=== PATIENT | female | born 1945 | race Caucasian/White ===

== ENCOUNTER 2020-01-22 08:24 | Outpatient (CLI) | payer MEDICARE, SELFPAY ==
--- NOTE | ~2020-01-22 | MM_ITS ---
EXAMINATION: MM screening [facility] w saarhi HISTORY: Screening mammogram TECHNIQUE: Craniocaudal and mediolateral oblique 3-D tomosynthesis images were obtained and synthetic 2-D images were generated. CAD analysis was submitted and interpreted. COMPARISON: 01/02/2019, 12/10/2016, 02/22/2014 bilateral digital screening mammogram examinations BREAST PARENCHYMAL COMPOSITION: There are scattered areas of fibroglandular density. FINDINGS: There is no evidence of suspicious mass, calcification, or architectural distortion to sugg est malignancy in either breast. There has been no suspicious interval change. IMPRESSION: 1. No mammographic evidence of malignancy. 2. Recommend routine screening mammography in one year. BI-RADS Category 1: Negative Reviewed, dictated and finalized at location A.
== END 2020-01-22 08:25 | disposition home or self-care (01) ==
LOC: ANHIMG 08:28
PROVIDERS: PCP Family Medicine; Visit Provider Obstetrics & Gynecology Gynecology
DX: Z12.31 Encounter for screening mammogram for malignant neoplasm of breast (principal)
CPT/HCPCS: 77063; 77067

== ENCOUNTER 2021-02-07 13:56 | Outpatient (CLI) | payer MEDICARE, SELFPAY ==
--- NOTE | ~2021-02-07 | MM_ITS ---
EXAMINATION: MM screening [facility] [place] BI w sarahi HISTORY: Screening TECHNIQUE: Craniocaudal and mediolateral oblique 3-D tomosynthesis images were obtained and synthetic 2-D images were generated. CAD analysis was submitted and interpreted. COMPARISON: Comparison to multiple prior studies sequentially, with oldest reviewed study dated 01/28. BREAST PARENCHYMAL COMPOSITION: There are scattered areas of fibroglandular density. FINDINGS: There is no evidence of suspicious mass, calcification, or architectural distortion to sugg est malignancy in either breast. There has been no suspicious interval change. IMPRESSION: 1. No mammographic evidence of malignancy. 2. Recommend routine screening mammography in one year. BI-RADS Category 1: Negative Reviewed, dictated and finalized at location A.
--- NOTE | ~2021-02-07 | DEXA_ITS ---
Bone Density Report Name: Sharlene Leung Age: 75 Sex: Female Ethnicity: White Date of : 1945 Indication: osteopenia; monitoring treatment; height loss; prior fracture; post menopausal Referring Provider: ROSALIO ECHEVERRIA Study: Bone densitometry was performed. Exam Date: February 07, 2021 Accession number: [id number] Bone Density: Region BMD T-score Z-score Classification AP Spine (L1-L4) 1.059 0.1 2.5 Normal Femoral Neck (Left) 0.693 -1.4 0.7 Osteopenia Total Hip (Left) 0.845 -0.8 1.0 Normal Total Hip Bilateral Avg 0.792 -1.3 0.6 Osteopenia Femoral Neck (Right) 0.603 -2.2 -0.1 Osteopenia Total Hip (Right) 0.737 -1.7 0.1 Osteopenia World Health Organization criteria for BMD impression classify patients as: Normal (T-score at or above -1.0), Osteopenia (T-score between -1.0 and -2.5), or Osteoporosis (T-score at or below -2.5). 10-year Fracture Risk: FRAX not reported because: Treated for osteoporosis Previous Exams: Region Exam Age BMD T-score BMD Change BMD Change Date g/cm2 vs Baseline vs Previous AP Spine(L1-L4) 02/07/2021 75 1.059 0.1 0.220(26.2%)# 0.048(4.7%)* 02/22/2014 68 1.011 -0.3 0.172(20.5%)# 0.037(3.8%)# 02/15/2012 66 0.974 -0.7 0.134(16.0%)# 0.127(15.0%)# 11/09/2006 61 0.846 -1.8 0.007(0.8%) 0.046(5.8%)* 08/05/2004 59 0.800 -2.2 -0.039(-4.7%)* -0.039(-4.7%)* 01/01/2003 57 0.839 -1.9 Total Hip(Left) 02/07/2021 75 0.845 -0.8 0.104(14.0%)# -0.038(-4.3%)* 01/02/2019 73 0.883 -0.5 0.142(19.2%)# 0.028(3.3%)* 12/10/2016 71 0.855 -0.7 0.114(15.4%)# 0.037(4.6%)* 02/22/2014 68 0.817 -1.0 0.077(10.3%)# -0.061(-7.0%)# 02/15/2012 66 0.879 -0.5 0.138(18.6%)# 0.142(19.3%)# 01/13/2010 64 0.737 -1.7 -0.004(-0.5%) 0.010(1.4%) 11/09/2006 61 0.727 -1.8 -0.014(-1.9%) 0.045(6.5%)* 08/05/2004 59 0.682 -2.1 -0.059(-7.9%)* -0.059(-7.9%)* 01/01/2003 57 0.741 -1.6 Total Hip(Right) 02/07/2021 75 0.737 -1.7 -0.007(-0.9%)# -0.035(-4.5%)* 01/02/2019 73 0.772 -1.4 0.028(3.8%)# -0.009(-1.1%) 12/10/2016 71 0.781 -1.3 0.037(5.0%)# 0.011(1.4%) 02/22/2014 68 0.770 -1.4 0.026(3.5%)# -0.035(-4.3%)# 02/15/2012 66 0.805 -1.1 0.061(8.2%)# 0.081(11.2%)# 01/13/2010 64 0.724 -1.8 -0.020(-2.7%) 0.040(5.8%)* 11/09/2006 61 0.684 -2.1 -0.060(-8.1%)* -0.006(-0.8%) 08/05/2004 59 0.689 -2.1 -0.055(-7.3%)* -0.055(-7.3%)* 01/01/2003 57 0.744 -1.6 *Denotes significance at 95% confidence level, [facility] for
== END 2021-02-07 13:57 | disposition home or self-care (01) ==
LOC: ANHIMG 13:59
PROVIDERS: PCP Family Medicine; Visit Provider Obstetrics & Gynecology Gynecology
DX: Z12.31 Encounter for screening mammogram for malignant neoplasm of breast (principal); Z78.0 Asymptomatic menopausal state; M85.852 Other specified disorders of bone density and structure, left thigh; M85.851 Other specified disorders of bone density and structure, right thigh
CPT/HCPCS: 77063; 77067; 77080

== ENCOUNTER 2022-01-15 12:46 | Outpatient (CLI) | payer MEDICARE, SELFPAY ==
[2022-01-15 20:41] LABS: Alanine Aminotransferase 19 U/L (6-35); Albumin Level 4.5 g/dL (3.5-5.1); Alkaline Phosphatase 65 U/L (38-126); Anion Gap 11 mmol/L (8-16); Aspartate Amino Transferase 46 U/L (14-36); Bilirubin,Total 0.9 mg/dL (0.2-1.3); Blood Urea Nitrogen 15 mg/dL (7-17); Calcium 9.4 mg/dL (8.4-10.2); Carbon Dioxide 31 mmol/L (22-30); Chloride 99 mmol/L (98-107); Estimated Glomerular Filt Rate > 60; Glucose 92 mg/dL (65-110); Potassium 3.5 mmol/L (3.4-5.0); Sodium 141 mmol/L (137-145)
[2022-01-15 21:05] LABS: Vitamin D 25 Hydroxy 90.4 ng/mL
== END 2022-01-15 12:47 | disposition home or self-care (01) ==
LOC: ANHGOSHLAB 12:48
PROVIDERS: PCP Family Medicine; Visit Provider Family Medicine
DX: E55.9 Vitamin D deficiency, unspecified (principal); E78.5 Hyperlipidemia, unspecified; I10 Essential (primary) hypertension
CPT/HCPCS: 36415; 80053; 82306

== ENCOUNTER 2022-03-05 07:52 | Outpatient (CLI) | payer MEDICARE, SELFPAY ==
--- NOTE | ~2022-03-05 | MM_ITS ---
EXAMINATION: MM screening [facility] w sarahi HISTORY: Screening mammogram TECHNIQUE: Craniocaudal and mediolateral oblique 3-D tomosynthesis images were obtained and synthetic 2-D images were generated. CAD analysis was submitted and interpreted. COMPARISON: 02/07/2021, 01/22/2020, 01/02/2019 bilateral screening mammogram examinations BREAST PARENCHYMAL COMPOSITION: There are scattered areas of fibroglandular density. FINDINGS: There is no evidence of suspicious mass, calcification, or architectural distortion to sugg est malignancy in either breast. There has been no suspicious interval change. IMPRESSION: 1. No mammographic evidence of malignancy. 2. Recommend routine screening mammography in one year. BI-RADS Category 1: Negative Reviewed, dictated and finalized at location A. 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
== END 2022-03-05 07:53 | disposition home or self-care (01) ==
LOC: ANHIMG 07:54
PROVIDERS: PCP Family Medicine; Visit Provider Obstetrics & Gynecology Gynecology
DX: Z12.31 Encounter for screening mammogram for malignant neoplasm of breast (principal)
CPT/HCPCS: 77063; 77067

== ENCOUNTER 2022-07-04 09:49 | Outpatient (CLI) | payer MEDICARE, SELFPAY ==
[2022-07-04 17:38] LABS: Basophils Absolute Auto 0.1 K/mm3 (0.0-0.1); Basophils Percent Auto 1.3 % (0.2-1.2); Eosinophils Absolute Auto 0.2 K/mm3 (0-0.3); Eosinophils Percent Auto 3.3 % (0-4.4); Hematocrit 43.9 % (37.0-47.0); Immature Granulocyte Absolute 0.01 K/mm3 (0.00-0.031); Immature Granulocyte Percent A 0.1 % (0-0.5); Lymphocytes Absolute Auto 2.37 K/mm3 (0.9-3.2); Lymphocytes Percent Auto 35.4 % (18.3-44.2); Mean Corpuscular HGB Conc 31.9 g/dl (32-36); Mean Corpuscular Hemoglobin 30.6 pg (26-34); Mean Corpuscular Volume 96.1 fl (80-100); Mean Platelet Volume 10.5 fl (7.4-10.4); Monocytes Absolute Auto 0.7 K/mm3 (0.1-0.6); Monocytes Percent Auto 10.4 % (2.6-8.5); Neutrophils Absolute Auto 3.3 K/mm3 (1.3-6.7); Neutrophils Percent Auto 49.5 % (45.5-73.1); Platelet Count Result 298 k/mm3 (150-375); Red Blood Count 4.57 M/mm3 (4.2-5.4); Red Cell Distribution Width 13.8 % (11.5-14.5); White Blood Count 6.7 K/mm3 (4.5-10.0)
[2022-07-04 18:24] LABS: Alanine Aminotransferase 21 U/L (6-35); Albumin Level 4.5 g/dL (3.5-5.1); Alkaline Phosphatase 82 U/L (38-126); Anion Gap 6 mmol/L (8-16); Aspartate Amino Transferase 34 U/L (14-36); Bilirubin,Total 0.8 mg/dL (0.2-1.3); Blood Urea Nitrogen 18 mg/dL (7-17); Calcium 9.4 mg/dL (8.4-10.2); Carbon Dioxide 33 mmol/L (22-30); Chloride 100 mmol/L (98-107); Cholesterol 164 mg/dL (0-200); Estimated Glomerular Filt Rate > 60; Glucose 103 mg/dL (65-110); HDL Direct 54 mg/dL; Potassium 4.7 mmol/L (3.4-5.0); Sodium 139 mmol/L (137-145); Triglycerides 108 mg/dL (<150)
[2022-07-04 18:35] LABS: LDL Cholesterol Direct 79 mg/dL
[2022-07-04 18:56] LABS: Vitamin D 25 Hydroxy 72.1 ng/mL
[2022-07-04 19:20] LABS: Hemoglobin A1C 5.4 % (<5.7)
== END 2022-07-04 09:50 | disposition home or self-care (01) ==
LOC: ANHGOSHLAB 09:51
PROVIDERS: PCP Family Medicine; Visit Provider Family Medicine
DX: M85.80 Other specified disorders of bone density and structure, unspecified site (principal); I10 Essential (primary) hypertension; E55.9 Vitamin D deficiency, unspecified; E78.5 Hyperlipidemia, unspecified; R73.9 Hyperglycemia, unspecified; E53.8 Deficiency of other specified B group vitamins
CPT/HCPCS: 36415; 80053; 80061; 82306; 82607; 83036; 84443; 85025

== ENCOUNTER 2023-01-03 10:07 | Outpatient (CLI) | payer MEDICARE, SELFPAY ==
[2023-01-03 19:05] LABS: Alanine Aminotransferase 18 U/L (6-35); Albumin Level 4.4 g/dL (3.5-5.1); Alkaline Phosphatase 66 U/L (38-126); Anion Gap 3 mmol/L (8-16); Aspartate Amino Transferase 30 U/L (14-36); Bilirubin,Total 0.9 mg/dL (0.2-1.3); Blood Urea Nitrogen 16 mg/dL (7-17); Calcium 9.5 mg/dL (8.4-10.2); Carbon Dioxide 37 mmol/L (22-30); Chloride 98 mmol/L (98-107); Estimated Glomerular Filt Rate > 60; Glucose 110 mg/dL (65-110); Potassium 4.6 mmol/L (3.4-5.0); Sodium 138 mmol/L (137-145)
== END 2023-01-03 10:08 | disposition home or self-care (01) ==
PROVIDERS: PCP Family Medicine; Visit Provider Family Medicine
DX: E78.5 Hyperlipidemia, unspecified (principal); I10 Essential (primary) hypertension
CPT/HCPCS: 36415; 80053

== ENCOUNTER 2023-04-02 08:40 | Outpatient (CLI) | payer MEDICARE, SELFPAY ==
--- NOTE | ~2023-04-02 | MM_ITS ---
EXAMINATION: MM screening [facility] BI w sarahi HISTORY: Screening mammogram TECHNIQUE: Craniocaudal and mediolateral oblique 3-D tomosynthesis images were obtained and synthetic 2-D images were generated. CAD analysis was submitted and interpreted. COMPARISON: 03/05/2022, 02/07/2021, 01/22/2020 BREAST PARENCHYMAL COMPOSITION: There are scattered areas of fibroglandular density. FINDINGS: No suspicious mass, calcification, or architectural distortion are identified in either radha ast to suggest malignancy. There has been no suspicious interval change. IMPRESSION: 1. No mammographic evidence of malignancy. 2. Recommend routine screening mammography in one year. 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
--- NOTE | ~2023-04-02 | DEXA_ITS ---
Bone Density Report Name: LUPE LAWTON Age: 77 Sex: Female Ethnicity: White Date of : 1945 Indication: osteopenia; monitoring treatment; height loss; postmenoapausal Referring Provider: ROSALIO ECHEVERRIA Study: Bone densitometry was performed. Exam Date: April 02, 2023 Accession number: [id number] Bone Density: Region BMD T-score Z-score Classification AP Spine(L1, L3, L4) 1.084 0.3 2.8 Normal Femoral Neck (Left) 0.697 -1.4 0.8 Osteopenia Total Hip (Left) 0.813 -1.1 0.8 Osteopenia Femoral Neck (Right) 0.624 -2.0 0.1 Osteopenia Total Hip (Right) 0.740 -1.7 0.2 Osteopenia Total Hip Mean 0.777 -1.4 0.5 Osteopenia World Health Organization criteria for BMD impression classify patients as: Normal (T-score at or above -1.0), Osteopenia (T-score between -1.0 and -2.5), or Osteoporosis (T-score at or below -2.5). 10-year Fracture Risk: FRAX not reported because: Treated for osteoporosis Previous Exams: Region Exam Age BMD T-score BMD Change BMD Change Date g/cm2 vs Baseline vs Previous AP Spine (L1,L3-L4) 04/02/2023 77 1.084 0.3 0.102 (10.3%)* 0.013 (1.2%) 02/07/2021 75 1.072 0.2 0.089 (9.1%)* 0.058 (5.8%)* 12/10/2016 71 1.013 -0.4 0.031 (3.1%)* 0.031 (3.1%)* 02/22/2014 68 0.983 -0.6 Total Hip(Left) 04/02/2023 77 0.813 -1.1 -0.004 (-0.5%) -0.031 (-3.7%) 02/07/2021 75 0.845 -0.8 0.027 (3.3%)* -0.038 (-4.3%) 01/02/2019 73 0.883 -0.5 0.065 (8.0%)* 0.028 (3.3%)* 12/10/2016 71 0.855 -0.7 0.037 (4.6%)* 0.037 (4.6%)* 02/22/2014 68 0.817 -1.0 Total Hip(Right) 04/02/2023 77 0.740 -1.7 -0.031 (-4.0%) 0.003 (0.4%) 02/07/2021 75 0.737 -1.7 -0.033 (-4.3%) -0.035 (-4.5%) 01/02/2019 73 0.772 -1.4 0.002 (0.2%) -0.009 (-1.1%) 12/10/2016 71 0.781 -1.3 0.011 (1.4%) 0.011 (1.4%) 02/22/2014 68 0.770 -1.4 *Denotes significance at 95% confidence level, LSC for AP Spine = 0.022 g/cm2, LSC for Total Hip = 0.027 g/cm2 Clinical Information Provided by Patient: Is being treated for osteoporosis Has used the following medications: Actonel (i.e. risedronate), Vitamin D, Calcium Patient maximum height was 64 Menopause Age: 51 Drinks caffeinated beverages Onset of menses at age 15 Number of children 2 Impression: The patient has low bone mass, based on the Right Femoral Neck T-score. The BMD for the Total Hip(Left) decreased, changing by -3.7% s
== END 2023-04-02 08:41 | disposition home or self-care (01) ==
PROVIDERS: PCP Family Medicine; Visit Provider Obstetrics & Gynecology Gynecology
DX: Z12.31 Encounter for screening mammogram for malignant neoplasm of breast (principal); Z78.0 Asymptomatic menopausal state; M85.89 Other specified disorders of bone density and structure, multiple sites
CPT/HCPCS: 77063; 77067; 77080

== ENCOUNTER 2023-07-08 09:36 | Outpatient (CLI) | payer MEDICARE, SELFPAY ==
[2023-07-08 10:41] LABS: Basophils Absolute Auto 0.1 K/mm3 (0.0-0.1); Basophils Percent Auto 0.7 % (0.2-1.2); Eosinophils Absolute Auto 0.1 K/mm3 (0-0.3); Eosinophils Percent Auto 1.4 % (0-4.4); Hematocrit 43.1 % (37.0-47.0); Hemoglobin 13.5 g/dL (12.0-15.0); Immature Granulocyte Absolute 0.02 K/mm3 (0.00-0.031); Immature Granulocyte Percent A 0.3 % (0-0.5); Lymphocytes Absolute Auto 2.57 K/mm3 (0.9-3.2); Lymphocytes Percent Auto 33.6 % (18.3-44.2); Mean Corpuscular HGB Conc 31.3 g/dl (32-36); Mean Corpuscular Volume 95.8 fl (80-100); Mean Platelet Volume 10.2 fl (7.4-10.4); Monocytes Absolute Auto 0.5 K/mm3 (0.1-0.6); Monocytes Percent Auto 5.9 % (2.6-8.5); Neutrophils Absolute Auto 4.5 K/mm3 (1.3-6.7); Neutrophils Percent Auto 58.1 % (45.5-73.1); Platelet Count Result 327 k/mm3 (150-375); Red Cell Distribution Width 13.2 % (11.5-14.5); White Blood Count 7.7 K/mm3 (4.5-10.0)
[2023-07-08 10:49] LABS: Alanine Aminotransferase 17 U/L (6-35); Albumin Level 4.4 g/dL (3.5-5.1); Alkaline Phosphatase 71 U/L (38-126); Anion Gap 5 mmol/L (8-16); Aspartate Amino Transferase 32 U/L (14-36); Blood Urea Nitrogen 18 mg/dL (7-17); Calcium 9.9 mg/dL (8.4-10.2); Carbon Dioxide 33 mmol/L (22-30); Chloride 100 mmol/L (98-107); Cholesterol 168 mg/dL (0-200); Estimated Glomerular Filt Rate > 60; Glucose 108 mg/dL (65-110); HDL Direct 57 mg/dL; Potassium 3.6 mmol/L (3.4-5.0); Sodium 138 mmol/L (137-145); Triglycerides 168 mg/dL (<150)
[2023-07-08 11:00] LABS: LDL Cholesterol Direct 75 mg/dL
[2023-07-08 11:57] LABS: Hemoglobin A1C 5.6 % (<5.7)
[2023-07-08 19:28] LABS: Vitamin D 25 Hydroxy 72.4 ng/mL
[2023-07-08 19:42] LABS: Thyroid Stimulating Hormone Reflex 0.941 uIU/mL (0.465-4.68)
== END 2023-07-08 09:37 | disposition home or self-care (01) ==
PROVIDERS: PCP Family Medicine; Visit Provider Family Medicine
DX: R73.9 Hyperglycemia, unspecified (principal); I10 Essential (primary) hypertension; E55.9 Vitamin D deficiency, unspecified; M85.80 Other specified disorders of bone density and structure, unspecified site; Z00.00 Encounter for general adult medical examination without abnormal findings; E78.5 Hyperlipidemia, unspecified; E53.8 Deficiency of other specified B group vitamins
CPT/HCPCS: 36415; 80053; 80061; 82306; 82607; 83036; 84443; 85025

== ENCOUNTER 2024-01-29 08:52 | Outpatient (CLI) | payer MEDICARE, SELFPAY ==
[2024-01-29 19:40] LABS: Alanine Aminotransferase 15 U/L (6-35); Albumin Level 4.3 g/dL (3.5-5.1); Alkaline Phosphatase 59 U/L (38-126); Anion Gap 8 mmol/L (4-12); Aspartate Amino Transferase 35 U/L (14-36); Bilirubin,Total 0.7 mg/dL (0.2-1.3); Blood Urea Nitrogen 17 mg/dL (7-17); Calcium 9.4 mg/dL (8.4-10.2); Carbon Dioxide 31 mmol/L (22-30); Chloride 101 mmol/L (98-107); Estimated Glomerular Filt Rate 54; Glucose 84 mg/dL (65-110); Potassium 3.9 mmol/L (3.4-5.0); Sodium 140 mmol/L (137-145)
== END 2024-01-29 08:53 | disposition home or self-care (01) ==
PROVIDERS: PCP Family Medicine; Visit Provider Family Medicine
DX: E78.5 Hyperlipidemia, unspecified (principal); I10 Essential (primary) hypertension
CPT/HCPCS: 36415; 80053

== ENCOUNTER 2024-04-01 08:01 | Outpatient (NON) | payer MEDICARE, SELFPAY | END 2024-04-01 08:02 | disposition home or self-care (01) | LOC: ANHLAB 04-02 08:03 | PROVIDERS: PCP Family Medicine; Visit Provider Internal Medicine Gastroenterology | DX: R19.5 Other fecal abnormalities (principal) | CPT/HCPCS: 88305 ==

== ENCOUNTER 2024-04-01 08:37 | Day surgery (SDC) | payer MEDICARE, SELFPAY ==
[2024-02-11 09:38] VITALS: BMI 31.4
[2024-03-10 10:51] VITALS: BMI 32.2
--- NOTE | 2024-04-01 06:58 | P.PNAN_ITS ---
Anes - Initial Pre Proc Eval Procedure: Operation Date: 04/01/24 11:00 Proposed Procedures p Diagnostic Colonoscopy - Kyle Last MD Date/Time: 04/01/24 06:58 Surgeon: Kyle Last MD Pre Op Diagnosis: Other Fecal Abnormalities Patient Data Age: 78 Gender: F Height: 1.57 m Weight: 80 kg Allergies Allergy/AdvReac Type Severity Reaction Status Date / Time Sulfa (Sulfonamide Allergy Unknown Skin Verified 04/01/24 09:23 Antibiotics) irritation Home Medications Medication Instructions Recorded Confirmed Type multivitamin with minerals-iron 9 mg PO DAILY 03/20/19 04/01/24 History fumarate 9 mg iron/15 mL oral liquid (Multi Vitamin) calcium 600 mg (as carbonate)-vit 1 tablet PO DAILY 06/09/20 04/01/24 History D3 20 mcg (800 unit) chewable tablet (Caltrate plus D) ibandronate 150 mg tablet 150 mg PO MONTHLY 01/15/22 04/01/24 History cholecalciferol (vitamin D3) 25 25 mcg PO DAILY 01/03/23 04/01/24 History mcg (1,000 unit) tablet omeprazole magnesium 20 mg 20 mg PO DAILY PRN Acid Reflux 07/08/23 04/01/24 History tablet,delayed release (Prilosec OTC) hydrochlorothiazide 25 mg tablet 25 mg PO DAILY #90 tabs 02/27/24 04/01/24 Rx atorvastatin 10 mg tablet 10 mg PO QHS #90 tabs 03/02/24 04/01/24 Rx Patient hx anesthesia problems: none Family hx anesthesia problems: none Results Review: All pre-operative results and documents have been reviewed as part of the pre- operative evaluation. [facility] Past Medical History Medical History Acute trigeminal herpes zoster (~06/2022) left mandibular distribution Breast mass, right Dyslipidemia Essential (primary) hypertension Osteopenia Recurrent UTI resolved Uterine fibroid Vitamin D deficiency Surgical History Surgical History History of tonsillectomy (~1951) Status post correction of deviated nasal septum 1970s Family History Family History Grandparent Family history of cardiovascular disease Cerebrovascular accident Father Family history of lung cancer Social History Social History Social History: Caffeine-coffee Smoking status: Never smoker Second hand tobacco smoke exposure: No Alcohol intake: current Drinks per week: 1 Alcohol use details: social Substance use: never Substance use type: does not use Lack of Transportation: No Lack of Food: Never True Current Housing: I Have Housing Concerned About Future Housing: No Difficulty Paying Gas/Electric Bills: No Difficulty Paying for Meds: No Currently Unemployed: No Education: High School Diploma/GED Difficulty w/ Childcare or Family Care: No Living arrangements: with family Gender identity (if verbalized by the patient): Female Spiritual care concerns: No Anes - Eval Final PreProcedure Day of Procedure 04/01/24 06:58 Patient weight: obese Heart: regular rate and rhythm Lungs: clear to auscultation Airway: Mallampati scale class II Neurological: alert and oriented Last oral intake: >/= 8 hours ASA classification: III Emergent: no Anesthetic plan: proceed Anesthesia type and monitoring: general GIVS and standard monitoring Results Review: All pre-operative results and documents have been reviewed as part of the pre- operative evaluation. Informed Consent: The patient's anesthetic plan and its attendant risks and benefits were discussed with the patient/family/POA. Questions were solicited and answers pr ovided to the satisfaction of the patient/family/POA.
[2024-04-01 09:25] VITALS: BP 134/98; PULSE 89; RESP 15; TEMP 37; O2SAT 97
[2024-04-01] MEDS: LACTATED RINGERS 1,000 ML 150 ML IV CONT ×2 (09:33→12:10)
--- NOTE | 2024-04-01 10:56 | PM.HPGS ---
History of Present Illness History of Present Illness Consent: Risks, benefits, and alternatives have been discussed and questions answered. Patient agrees to proceed with procedure. Chief complaint: Positive Cologuard test Narrative: Sharlene Leung is a 78 year old female presents for colonoscopy. Patient was found to have a positive Cologuard test. She reports that her weight appetite and bowel movements are normal. Patient denies abdominal pain. She has had no bleeding. Family history is noncontributory. Review of Systems Review of Systems: All systems reviewed & are unremarkable except as noted in HPI and below PMFSH Past Medical History Medical History Acute trigeminal herpes zoster (~06/2022) left mandibular distribution Breast mass, right Dyslipidemia Essential (primary) hypertension Osteopenia Recurrent UTI resolved Uterine fibroid Vitamin D deficiency Surgical History Surgical History History of tonsillectomy (~1951) Status post correction of deviated nasal septum 1970s Family History Family History Grandparent Family history of cardiovascular disease Cerebrovascular accident Father Family history of lung cancer Social History Social History Social History: Caffeine-coffee Smoking status: Never smoker Second hand tobacco smoke exposure: No Alcohol intake: current Drinks per week: 1 Alcohol use details: social Substance use: never Substance use type: does not use Lack of Transportation: No Lack of Food: Never True Current Housing: I Have Housing Concerned About Future Housing: No Difficulty Paying Gas/Electric Bills: No Difficulty Paying for Meds: No Currently Unemployed: No Education: High School Diploma/GED Difficulty w/ Childcare or Family Care: No Living arrangements: with family Gender identity (if verbalized by the patient): Female Spiritual care concerns: No Meds Home Medications and Allergies Home Medications Medication Instructions Recorded Confirmed Type multivitamin with minerals-iron 9 mg PO DAILY 03/20/19 04/01/24 History fumarate 9 mg iron/15 mL oral liquid (Multi Vitamin) calcium 600 mg (as carbonate)-vit 1 tablet PO DAILY 06/09/20 04/01/24 History D3 20 mcg (800 unit) chewable tablet (Caltrate plus D) ibandronate 150 mg tablet 150 mg PO MONTHLY 01/15/22 04/01/24 History cholecalciferol (vitamin D3) 25 25 mcg PO DAILY 01/03/23 04/01/24 History mcg (1,000 unit) tablet omeprazole magnesium 20 mg 20 mg PO DAILY PRN Acid Reflux 07/08/23 04/01/24 History tablet,delayed release (Prilosec OTC) hydrochlorothiazide 25 mg tablet 25 mg PO DAILY #90 tabs 02/27/24 04/01/24 Rx atorvastatin 10 mg tablet 10 mg PO QHS #90 tabs 03/02/24 04/01/24 Rx Allergies Allergy/AdvReac Type Severity Reaction Status Date / Time Sulfa (Sulfonamide Allergy Unknown Skin Verified 04/01/24 09:23 Antibiotics) irritation Vital Signs Vital Signs - 24 hr 04/01/24 09:25 Temperature 98.6 F Pulse Rate 89 Respiratory Rate 15 Blood Pressure 134/98 H Pulse Oximetry 97 Oxygen Delivery Room Air Exam Narrative: Physical exam reveals patient to be alert. Vital signs stable. HEENT exam is unremarkable. Patient is anicteric. Lungs are clear to auscultation and to percussion. Heart is without murmur or extra sounds. Abdomen bowel sounds are present soft nontender with no organomegaly. Digital external rectal exam normal. Assessment and Plan Assessment and plan (1) Positive colorectal cancer screening using Cologuard test: Code(s): R19.5 - Other fecal abnormalities Status: Acute Assessment and Plan: Patient found to have positive Cologuard test. Plan for screening colonoscopy at this time. Further recommendations may be given after endoscopy.
[2024-04-01 12:10] VITALS: BP 97/66; PULSE 66; RESP 16; O2SAT 97
[2024-04-01 12:20] VITALS: BP 122/73; PULSE 65; RESP 16; O2SAT 100
[2024-04-01 12:30] VITALS: BP 117/80; PULSE 70; RESP 18; O2SAT 100
--- NOTE | 2024-04-01 12:47 | WPDANESPN ---
Anes - Prog Note Post-Op Date/Time: 04/01/24 12:47 Cardiovascular status: normal Respiratory status: normal Airway patency: baseline Mental status: baseline Post-Op hydration status: normal Vital Signs: Last Vital Signs Temp 37.0 C 04/01/24 09:25 Pulse 70 04/01/24 12:30 Resp 18 04/01/24 12:30 BP 117/80 04/01/24 12:30 Pulse Ox 100 04/01/24 12:30 O2 Del Method Room Air 04/01/24 12:30 Pain Score (VAS): 0 I/O: Intake & Output 03/31/24 04/01/24 04/01/24 23:59 07:59 15:59 Intake Total 1000 Balance 1000 Post-procedural complaints: none Patient Feedback: Patient satisfied with anesthetic care. Other Findings: Patient vital signs back to baseline. Patient denies nausea and vomiting. Patient's pain under control. Patient OK for discharge.
== END 2024-04-01 12:35 | disposition home or self-care (01) ==
PROVIDERS: PCP Family Medicine; Visit Provider Internal Medicine Gastroenterology
PROC: 0DJD8ZZ Inspection of Lower Intestinal Tract, Via Natural or Artificial Opening Endoscopic (ICD-10-PCS; CPT 45378; principal; 2024-04-01 11:00)
DX: R19.5 Other fecal abnormalities (principal); D12.2 Benign neoplasm of ascending colon; K57.30 Diverticulosis of large intestine without perforation or abscess without bleeding; K64.8 Other hemorrhoids
CPT/HCPCS: 45385

== ENCOUNTER 2024-07-27 10:11 | Outpatient (CLI) | payer MEDICARE, SELFPAY ==
[2024-07-27 13:43] LABS: Basophils Absolute Auto 0.1 K/mm3 (0.0-0.1); Basophils Percent Auto 1.1 % (0.2-1.2); Eosinophils Absolute Auto 0.2 K/mm3 (0-0.3); Eosinophils Percent Auto 2.1 % (0-4.4); Hematocrit 44.3 % (37.0-47.0); Hemoglobin 13.8 g/dL (12.0-15.0); Immature Granulocyte Absolute 0.01 K/mm3 (0.00-0.031); Immature Granulocyte Percent A 0.1 % (0-0.5); Lymphocytes Percent Auto 37.9 % (18.3-44.2); Mean Corpuscular HGB Conc 31.2 g/dl (32-36); Mean Corpuscular Hemoglobin 29.5 pg (26-34); Mean Corpuscular Volume 94.7 fl (80-100); Mean Platelet Volume 10.7 fl (7.4-10.4); Monocytes Absolute Auto 0.4 K/mm3 (0.1-0.6); Monocytes Percent Auto 6.2 % (2.6-8.5); Neutrophils Absolute Auto 3.8 K/mm3 (1.3-6.7); Neutrophils Percent Auto 52.6 % (45.5-73.1); Platelet Count Result 312 k/mm3 (150-375); Red Blood Count 4.68 M/mm3 (4.2-5.4); Red Cell Distribution Width 13.5 % (11.5-14.5); White Blood Count 7.1 K/mm3 (4.5-10.0)
[2024-07-27 14:29] LABS: Alanine Aminotransferase 20 U/L (6-35); Albumin Level 4.5 g/dL (3.5-5.1); Alkaline Phosphatase 67 U/L (38-126); Anion Gap 8 mmol/L (4-12); Aspartate Amino Transferase 47 U/L (14-36); Bilirubin,Total 0.9 mg/dL (0.2-1.3); Blood Urea Nitrogen 17 mg/dL (7-17); Calcium 9.9 mg/dL (8.4-10.2); Carbon Dioxide 33 mmol/L (22-30); Chloride 98 mmol/L (98-107); Cholesterol 157 mg/dL (0-200); Estimated Glomerular Filt Rate 59; Glucose 101 mg/dL (65-110); HDL Direct 58 mg/dL; Potassium 4.3 mmol/L (3.4-5.0); Sodium 139 mmol/L (137-145); Triglycerides 119 mg/dL (<150)
[2024-07-27 14:42] LABS: LDL Cholesterol Direct 60 mg/dL
[2024-07-27 14:47] LABS: Vitamin D 25 Hydroxy 79.2 ng/mL
[2024-07-27 14:56] LABS: Hemoglobin A1C 5.5 % (<5.7)
== END 2024-07-27 10:12 | disposition home or self-care (01) ==
PROVIDERS: PCP Family Medicine; Visit Provider Family Medicine
DX: E78.5 Hyperlipidemia, unspecified (principal); E53.8 Deficiency of other specified B group vitamins; I10 Essential (primary) hypertension; R73.9 Hyperglycemia, unspecified; E55.9 Vitamin D deficiency, unspecified
CPT/HCPCS: 36415; 80053; 80061; 82306; 82607; 83036; 84443; 85025

== ENCOUNTER 2025-02-02 11:29 | Outpatient (CLI) | payer MEDICARE, SELFPAY ==
[2025-02-02 13:21] LABS: Alanine Aminotransferase 15 U/L (6-35); Albumin Level 4.4 g/dL (3.5-5.1); Alkaline Phosphatase 68 U/L (38-126); Anion Gap 7 mmol/L (4-12); Aspartate Amino Transferase 43 U/L (14-36); Bilirubin,Total 0.6 mg/dL (0.2-1.3); Blood Urea Nitrogen 20 mg/dL (7-17); Calcium 9.2 mg/dL (8.4-10.2); Carbon Dioxide 32 mmol/L (22-30); Chloride 98 mmol/L (98-107); Estimated Glomerular Filt Rate > 60; Glucose 100 mg/dL (65-110); Potassium 3.7 mmol/L (3.4-5.0); Sodium 137 mmol/L (137-145); Total Protein 8.0 g/dL (6.3-8.2)
== END 2025-02-02 11:30 | disposition home or self-care (01) ==
PROVIDERS: PCP Family Medicine; Visit Provider Family Medicine
DX: I10 Essential (primary) hypertension (principal); Z79.899 Other long term (current) drug therapy
CPT/HCPCS: 36415; 80053